=== PATIENT | female | born 1985 | race Caucasian/White ===

== ENCOUNTER → 2019-02-06 | Day surgery (SDC) | payer OTHER | END | disposition home or self-care (01) | LOC: ADM 02-04 09:00 → AMB-ENDOS 08:21 | DX: N80.5 Endometriosis of intestine (principal); Z12.11 Encounter for screening for malignant neoplasm of colon ==

== ENCOUNTER 2019-03-11 08:30 | Inpatient (IN) | payer OTHER ==
[~2019-03-11] VITALS: Ht 170.2 cm; Wt 94.8 kg
[2019-03-18] MEDS ORDERED: PERCOCET 5-3251 EACH PO (08:54)
[2019-03-18] MEDS ORDERED: NEURONTIN300 MG PO (08:55)
[2019-03-18] MEDS ORDERED: LEVSIN/SL0.125 MG SL (08:56)
== END 2019-03-18 13:50 | disposition home or self-care (01) | DRG 742 ==
LOC: SURH 03-17 06:24 → O/R 03-17 06:24 → SURH 03-17 07:00 → OB/GYN 03-17 11:23 → SURH 03-17 13:40
PROVIDERS: Surgery; ADMIT Obstetrics & Gynecology Gynecology
PROC: 0DTJ4ZZ Resection of Appendix, Percutaneous Endoscopic Approach (ICD-10-PCS; 2019-03-17)
PROC: 0UT9FZZ Resection of Uterus, Via Natural or Artificial Opening With Percutaneous Endoscopic Assistance (ICD-10-PCS; principal; 2019-03-17 07:00)
PROC: 0UT7FZZ Resection of Bilateral Fallopian Tubes, Via Natural or Artificial Opening With Percutaneous Endoscopic Assistance (ICD-10-PCS; 2019-03-17 07:00)
DX: N94.5 Secondary dysmenorrhea (principal); K35.890 Other acute appendicitis without perforation or gangrene; N80.0 Endometriosis of uterus; N73.6 Female pelvic peritoneal adhesions (postinfective); N80.1 Endometriosis of ovary; N72 Inflammatory disease of cervix uteri; D06.1 Carcinoma in situ of exocervix; D25.2 Subserosal leiomyoma of uterus